=== PATIENT | male | born 1950 | race Asian ===

== ENCOUNTER 2019-03-19 07:45 | Emergency (ER) | payer MEDICARE, OTHER ==
[~2019-03-19] VITALS: Ht 180.3 cm; Wt 68.0 kg
[2019-03-19 07:54] VITALS: Ht 180.3 cm; Wt 68.0 kg
[2019-03-19] MEDS ORDERED: LIDOCAINE 2% (MDV) 20 ML INJ INJ STA (08:05)
[2019-03-19] MEDS ORDERED: DIPHTH/TET/ACEL PERTUSS (ADULT) 0.5 ML VIAL IM* ONE (08:30)
--- NOTE | 2019-03-19 08:31 | ERD ---
ER Documentation Chief Complaint Chief Complaint laceration to RT upper eyebrow after a fall at [facility] no KO HPI This is a 68-year-old male with a past medical history of dementia. The patient resides at [facility]. He usually ambulates with assistance but this morning had gotten up to go the bathroom and resulted in a witnessed mechanical fall. He had a laceration above his right eyebrow. The patient is a poor historian so no further history is available. According to nursing staff the patient did not have any loss of consciousness and is not on anticoagulants. He has not experienced any emesis. It is unknown when his last tetanus update had been given ROS All systems reviewed and are negative except as per history of present illness. Allergies Allergies: Coded Allergies: No Known Allergy (Unverified , 03/19/19) PMhx/Soc History of Surgery: Yes ([facility]ON HOLES FROM [facility]) Anesthesia Reaction: No Hx Neurological Disorder: Yes (DEMENTIA, [facility], SEIZURES) Hx Respiratory Disorders: No Hx Cardiac Disorders: Yes (HYPERLIPIDEMIA) Hx Psychiatric Problems: Yes (ETOH ABUSE) Hx Miscellaneous Medical Probl: Yes (CKD, MULTIPLE FALLS) Hx Alcohol Use: No Hx Substance Use: No Hx Tobacco Use: No Smoking Status: Never smoker Physical Exam Vitals Vital Signs Date Temp Pulse Resp B/P (MAP) Pulse Ox O2 O2 Flow FiO2 Time Delivery Rate 03/19/19 98.0 80 15 129/72 97 Room Air 09:00 (91) 03/19/19 98.0 80 18 119/68 96 07:54 (85) Physical Exam Constitutional:Well-developed. Well-nourished. HEENT:Normocephalic. 4 cm laceration over the lateral aspect of the right brow. No exposure of the calvarium and no scalp hematomas or nasal septal hematoma..Pupils were equal round reactive to light. Moist mucous membranes.No tonsillar exudates. Neck: No nuchal rigidity. No lymphadenopathy. No posterior cervical spine tenderness or step-offs. Respiratory: Not using accessory muscles of respiration.Lungs were clear to auscultation bilaterally. No rhonchi. No rales. No wheezing. Cardiovascular: Regular rate regular rhythm.No murmurs. No rubs were appreciated.S1, S2 normal. Distal pulses are palpable 2+ bilaterally. GI: Abdomen was soft. Nontender. Non Distended. No pulsatile abdominal masses or bruits. No rebound. No guarding. Bowel sounds were present and normal. Muscle skeletal: Full range of motion of both the upper and lower extremities bilaterally.Normal muscle tone.No assymetrical calf tenderness or swelling. Skin: No petechia, no purpura. No lesions on the palms or the soles of the feet. No maculopapular rash. NEURO: Patient was alert, awake and oriented to person but not to time or place. Gait not observed. Results 24 hrs Current Medications Medications Dose Sig/Maye Start Time Status Last (Trade) Ordered Route PRN Stop Time Admin Dose Reason Admin Diphtheria/ 0.5 ml ONCE ONCE 03/19/19 DC 03/19/19 Tetanus/Acell IM* 08:30 09:01 Pertussis 03/19/19 08:31 (Adacel) Lidocaine 20 ml ONCE STAT 03/19/19 DC (Xylocaine INJ 08:05 2% (Mdv) 20 03/19/19 08:15 ml) Procedures/MDM Is a 69-year-old male that presented to the emergency department with blunt head trauma. CT scan of the patient's head was ordered and there is no intracerebral hemorrhage mass-effect or midline shift. Patient was given a tetanus toxoid update. The wound was irrigated using high-pressure normal saline after analgesia control with 1% lidocaine without epinephrine a total of 6 cc was used to anesthetize the wound. 8 simple interrupted sutures were placed using 4-0 chromic gut. Hemostasis controlled and the wound was easily opposed and wound length after repair was roughly 4 cm. Ambulance transfer will be set up to take the patient back to [facility]. The patient was discharged home in fair condition. They were instructed to return to the emergency department at any time if there was any worsening of their condition. The patient stated they would follow up with their PCP in the next 24-48 hours to initiate a suitable medication regimen under the care of their PCP as well as to allow their PCP to monitor any drug reactions. The patient was discharged home with prescriptions after they gave informed consent to the new medication. They were also fully informed by myself on the adverse effects and adverse drug interactions in order to provide adequate safeguards to prevent possible adverse reactions to medications. Departure Diagnosis: Primary Impression: Facial laceration Encounter type: initial encounter Qualified Codes: S01.81XA - Laceration without foreign body of other part of head, initial encounter Additional Impression: Blunt head trauma Encounter type: initial encounter Qualified Codes: S09.8XXA - Other specified injuries of head, initial encounter Condition: YAMILET Faith MD Mar 19, 2019 08:31
[2019-03-19 10:59] VITALS: BP 124/80; PULSE 80; RESP 16
== END 2019-03-19 11:00 | disposition home or self-care (01) ==
LOC: E/R 07:45
DX: S01.81XA Laceration without foreign body of other part of head, initial encounter (principal); S09.8XXA Other specified injuries of head, initial encounter; N18.9 Chronic kidney disease, unspecified; W18.39XA Other fall on same level, initial encounter; Y92.9 Unspecified place or not applicable; Z23 Encounter for immunization
CPT/HCPCS: 70450; 90471; 90715